=== PATIENT | female | born 1990 | race Caucasian/White ===

== ENCOUNTER 2017-04-22 17:29 | Emergency (ER) | payer BC ==
[~2017-04-22] VITALS: Wt 54.4 kg
[2017-04-22] MEDS ORDERED: ZYRTEC10 MG PO (21:16)
[2017-04-22] MEDS ORDERED: EPIPEN 2-P0.3 MG/0.3 IJ (21:16)
[2017-04-22] MEDS ORDERED: MEDROL DOSEPAK4 MG PO (21:16)
== END 2017-04-22 21:36 | disposition home or self-care (01) ==
LOC: ED 17:29
DX: T78.40XA Allergy, unspecified, initial encounter (principal); X58.XXXA Exposure to other specified factors, initial encounter

== ENCOUNTER → 2019-05-28 | Outpatient (CLI) | payer OTHER ==
[~2019-05-28] MED LIST: EPIPEN 2-P0.3 MG/0.3 IJ; MEDROL DOSEPAK4 MG PO; ZYRTEC10 MG PO
[2019-05-28 15:26] LABS: HEMATOCRIT 40.2 % (37.0-47.0); HEMOGLOBIN 13.4 g/dl (12.0-16.0); MEAN CELL VOLUME 95.9 fl (81.0-99.0); MEAN CORPUSCULAR HGB CONC 33.3 g/dl (33.0-37.0); MEAN PLATELET VOLUME 10.3 fl (9.6-12.3); RED BLOOD COUNT 4.19 10*6/uL (4.10-5.10); RED CELL DISTRI WIDTH 12.2 % (0-14.5); WHITE BLOOD COUNT 5.8 10*3/uL (4.8-10.8)
[2019-05-28 16:05] LABS: ALBUMIN 4.2 gm/dl (3.1-4.5); ALKALINE PHOSPHATASE 55 U/L (45-117); BUN 11 mg/dl (7-24); CHLORIDE 108 mmol/L (98-107); CHOLESTEROL 139 mg/dL (<200); HDL CHOLESTEROL 47 mg/dl (40-60); LDL CHOLESTEROL 77 mg/dL (9-159); POTASSIUM 3.8 mmol/L (3.5-5.1); SGOT/AST 15 IU/L (3-35); SGPT/ALT 19 U/L (12-78); SODIUM 142 mmol/L (136-145); TOTAL PROTEIN 7.8 gm/dL (6.4-8.2); TRIGLYCERIDES 76 mg/dl (<150); VLDL CHOLESTEROL 15 mg/dL (6-40)
[2019-05-30 03:08] LABS: PROTEIN S-FUNCTIONAL 164525 80 % (63-140)
== END | disposition home or self-care (01) ==
LOC: LAB 14:15
PROVIDERS: Family Medicine
DX: Z13.220 Encounter for screening for lipoid disorders (principal); E55.9 Vitamin D deficiency, unspecified; N93.9 Abnormal uterine and vaginal bleeding, unspecified

== ENCOUNTER → 2019-10-02 | Outpatient (CLI) | payer OTHER | END | disposition home or self-care (01) | LOC: US 11:24 | DX: Z34.01 Encounter for supervision of normal first pregnancy, first trimester (principal); Z3A.08 8 weeks gestation of pregnancy ==

== ENCOUNTER 2019-10-23 20:04 | Emergency (ER) | payer OTHER ==
[~2019-10-23] VITALS: Ht 170.1 cm; Wt 59.0 kg
[2019-10-23 21:35] LABS: BILIRUBIN NEGATIVE (NEGATIVE); CLARITY CLEAR (CLEAR); COLOR YELLOW (YELLOW); GLUCOSE NEGATIVE (NEGATIVE); KETONE NEGATIVE (NEGATIVE)
[2019-10-23 21:36] LABS: BLOOD 2+ (NEGATIVE); LEUKO ESTERASE NEGATIVE (NEGATIVE); NITRITE NEGATIVE (NEGATIVE); SPECIFIC GRAVITY 1.025 (1.005-1.030); UROBILINOGEN 0.2 E.U./dl (0.2-1.0)
[2019-10-23 21:42] LABS: BACTERIA 2+
[2019-10-23 22:08] LABS: BASO % 0.5 % (0.0-1.0); EOS # 0.1 10*3/uL (0.0-0.4); EOS % 0.8 % (1.0-4.0); HEMATOCRIT 33.8 % (37.0-47.0); LYMPH # 1.8 10*3/uL (1.3-4.4); LYMPH % 29.9 % (27.0-41.0); MEAN CELL VOLUME 93.1 fl (81.0-99.0); MEAN CORPUSCULAR HGB 32.2 pg (27.0-31.0); MEAN CORPUSCULAR HGB CONC 34.6 g/dl (33.0-37.0); MEAN PLATELET VOLUME 9.7 fl (9.6-12.3); MONO # 0.4 10*3/uL (0.1-1.0); MONO % 6.4 % (3.0-9.0); NEUT # 3.7 10*3/uL (2.3-7.9); NEUT % 62.1 % (47.0-73.0); PLATELET COUNT AUTOMATED 133 10*3/uL (130-400); RED BLOOD COUNT 3.63 10*6/uL (4.10-5.10); RED CELL DISTRI WIDTH 12.3 % (0-14.5); WHITE BLOOD COUNT 5.9 10*3/uL (4.8-10.8)
[2019-10-23 22:20] LABS: ALBUMIN 3.9 gm/dl (3.1-4.5); ALKALINE PHOSPHATASE 32 U/L (45-117); BUN 11 mg/dl (7-24); CHLORIDE 105 mmol/L (98-107); CREATININE 0.52 mg/dL (0.55-1.02); LIPASE 172 U/L (73-393); POTASSIUM 3.6 mmol/L (3.5-5.1); SGOT/AST 24 IU/L (3-35); SGPT/ALT 21 U/L (12-78); SODIUM 139 mmol/L (136-145)
[2019-10-24] MEDS ORDERED: Percocet 325 MG1 TAB PO (22:19)
[2019-10-24] MEDS ORDERED: ZOFRAN4 MG PO (22:19)
[2019-10-27] MEDS ORDERED: ASPIRIN CHEWABL81 MG PO (15:55)
[2019-10-28] MEDS ORDERED: Motrin,Rufen800 MG PO (10:43)
[2019-10-28] MEDS ORDERED: NORCO 5-325 TA1 EACH PO (10:43)
== END 2019-10-24 00:55 | disposition home or self-care (01) ==
LOC: ED 20:04
PROVIDERS: Physician Assistant
DX: O36.8310 Maternal care for abnormalities of the fetal heart rate or rhythm, first trimester, not applicable or unspecified (principal); Z3A.12 12 weeks gestation of pregnancy; Z79.899 Other long term (current) drug therapy

== ENCOUNTER 2019-10-24 19:27 | Emergency (ER) | payer OTHER ==
[2019-10-24 19:54] LABS: BASO % 0.4 % (0.0-1.0); EOS # 0.1 10*3/uL (0.0-0.4); EOS % 1.1 % (1.0-4.0); HEMATOCRIT 37.4 % (37.0-47.0); LYMPH # 2.1 10*3/uL (1.3-4.4); LYMPH % 24.5 % (27.0-41.0); MEAN CELL VOLUME 93.7 fl (81.0-99.0); MEAN CORPUSCULAR HGB 31.8 pg (27.0-31.0); MEAN PLATELET VOLUME 9.9 fl (9.6-12.3); MONO # 0.6 10*3/uL (0.1-1.0); NEUT # 5.6 10*3/uL (2.3-7.9); NEUT % 66.6 % (47.0-73.0); PLATELET COUNT AUTOMATED 149 10*3/uL (130-400); RED BLOOD COUNT 3.99 10*6/uL (4.10-5.10); RED CELL DISTRI WIDTH 12.3 % (0-14.5); WHITE BLOOD COUNT 8.4 10*3/uL (4.8-10.8)
[2019-10-24 20:08] LABS: ALBUMIN 4.2 gm/dl (3.1-4.5); ALKALINE PHOSPHATASE 36 U/L (45-117); BUN 12 mg/dl (7-24); CHLORIDE 107 mmol/L (98-107); CREATININE 0.79 mg/dL (0.55-1.02); POTASSIUM 3.6 mmol/L (3.5-5.1); SGOT/AST 16 IU/L (3-35); SGPT/ALT 24 U/L (12-78); SODIUM 141 mmol/L (136-145); TOTAL PROTEIN 7.5 gm/dL (6.4-8.2)
[2019-10-24] MEDS ORDERED: ZOFRAN4 MG PO (22:19)
[2019-10-24] MEDS ORDERED: Percocet 325 MG1 TAB PO (22:19)
[2019-10-27] MEDS ORDERED: ASPIRIN CHEWABL81 MG PO (15:55)
[2019-10-28] MEDS ORDERED: NORCO 5-325 TA1 EACH PO (10:43)
[2019-10-28] MEDS ORDERED: Motrin,Rufen800 MG PO (10:43)
== END 2019-10-24 22:22 | disposition home or self-care (01) ==
LOC: ED 19:27
PROVIDERS: Physician Assistant
DX: O03.9 Complete or unspecified spontaneous abortion without complication (principal)

== ENCOUNTER → 2019-10-25 | Outpatient (CLI) | payer OTHER ==
[~2019-10-25] MED LIST changes: +ASPIRIN CHEWABL81 MG PO; +Motrin,Rufen800 MG PO; +NORCO 5-325 TA1 EACH PO; +Percocet 325 MG1 TAB PO; +ZOFRAN4 MG PO
== END ==
LOC: US 09:41
DX: O03.9 Complete or unspecified spontaneous abortion without complication (principal)

== ENCOUNTER → 2019-10-28 | Day surgery (SDC) | payer OTHER ==
[~2019-10-28] VITALS: Ht 170.1 cm; Wt 59.0 kg
[2019-10-28 08:10] VITALS: BP 129/78
[2019-10-28 08:34] LABS: ACT PARTIAL THROMBO TIME 25.3 SECONDS (20.0-32.1)
[2019-10-28 10:23] VITALS: BP 140/90
[2019-10-28 10:40] VITALS: BP 108/75
[2019-10-28 10:55] VITALS: BP 106/71
[2019-10-28 11:17] VITALS: BP 110/77
== END | disposition home or self-care (01) ==
LOC: SDC 10-27 14:00
PROVIDERS: Obstetrics & Gynecology
DX: O02.1 Missed abortion (principal)

== ENCOUNTER → 2019-12-18 | Outpatient (CLI) | payer OTHER | END | disposition home or self-care (01) | LOC: LAB 09:57 | DX: N91.2 Amenorrhea, unspecified (principal) ==

== ENCOUNTER → 2020-04-01 | Outpatient (CLI) | payer OTHER ==
[2020-04-01 10:12] LABS: VITAMIN D, 25-HYDROXY 26.2 ng/mL (30-100)
[2020-04-01 10:23] LABS: RUBELLA IgG ANTIBODY 67.1 IU/mL (>10)
== END | disposition home or self-care (01) ==
LOC: LAB 08:55
PROVIDERS: ATTEND Obstetrics & Gynecology Reproductive Endocrinology
DX: Z11.59 Encounter for screening for other viral diseases (principal); E02 Subclinical iodine-deficiency hypothyroidism; E55.9 Vitamin D deficiency, unspecified; Z01.83 Encounter for blood typing

== ENCOUNTER 2021-04-24 12:22 | Emergency (ER) | payer OTHER | END 2021-04-24 12:51 | disposition home or self-care (01) | LOC: ED 12:22 | DX: O46.92 Antepartum hemorrhage, unspecified, second trimester (principal); Z3A.12 12 weeks gestation of pregnancy; Z79.82 Long term (current) use of aspirin ==

== ENCOUNTER 2021-06-07 17:27 | Emergency (ER) | payer OTHER ==
[~2021-06-07] VITALS: Ht 170.1 cm; Wt 61.2 kg
[2021-06-07 17:49] LABS: BASO % 0.3 % (0.0-1.0); HEMATOCRIT 33.7 % (37.0-47.0); LYMPH # 0.5 10*3/uL (1.3-4.4); LYMPH % 12.7 % (27.0-41.0); MEAN CELL VOLUME 93.9 fl (81.0-99.0); MEAN CORPUSCULAR HGB 32.6 pg (27.0-31.0); MEAN CORPUSCULAR HGB CONC 34.7 g/dl (33.0-37.0); MONO # 0.3 10*3/uL (0.1-1.0); MONO % 8.5 % (3.0-9.0); NEUT # 2.7 10*3/uL (2.3-7.9); NEUT % 77.1 % (47.0-73.0); PLATELET COUNT AUTOMATED 87 10*3/uL (130-400); RED BLOOD COUNT 3.59 10*6/uL (4.10-5.10); RED CELL DISTRI WIDTH 13.2 % (0-14.5); WHITE BLOOD COUNT 3.5 10*3/uL (4.8-10.8)
[2021-06-07 18:03] LABS: ALBUMIN 3.2 gm/dl (3.1-4.5); ALKALINE PHOSPHATASE 44 U/L (45-117); BUN 6 mg/dl (7-24); CHLORIDE 104 mmol/L (98-107); CREATININE 0.53 mg/dL (0.55-1.02); POTASSIUM 3.5 mmol/L (3.5-5.1); SGOT/AST 58 IU/L (3-35); SGPT/ALT 58 U/L (12-78); SODIUM 135 mmol/L (136-145); TOTAL PROTEIN 6.8 gm/dL (6.4-8.2)
[2021-06-07 19:18] LABS: BILIRUBIN Negative (Negative); BLOOD Negative (Negative); CLARITY Clear (Clear); COLOR Yellow (Yellow); GLUCOSE Negative (Negative); KETONE Negative (Negative); LEUKO ESTERASE Negative (Negative); NITRITE Negative (Negative); SPECIFIC GRAVITY 1.015 (1.001-1.030)
[2021-06-07 19:19] LABS: PH 8.5 (4.5-8.0)
[2021-06-07 19:24] LABS: BACTERIA 2+; EPITHELIAL CELLS 0-2; RBC 0-2 rbc/hpf (0-2); WBC 0-2 wbc/hpf (0-5)
== END 2021-06-07 23:04 | disposition home or self-care (01) ==
LOC: ED 17:27
PROVIDERS: Nurse Practitioner
DX: O99.352 Diseases of the nervous system complicating pregnancy, second trimester (principal); Z20.822 Contact with and (suspected) exposure to COVID-19; Z3A.20 20 weeks gestation of pregnancy

== ENCOUNTER → 2023-03-24 | Outpatient (CLI) | payer BC ==
[2023-03-26 16:07] LABS: DILUTE PROTHROMBIN TIME 40.7 sec (0.0-47.6); DPT CONFIRM RATIO 1.05 Ratio (0.00-1.34); LUPUS DRVVT 32.2 sec (0.0-47.0); LUPUS REFLEX INTERPRETATION Comment: (.); THROMBIN TIME 18.4 sec (0.0-23.0)
== END | disposition home or self-care (01) ==
LOC: LAB 07:09
PROVIDERS: ATTEND Obstetrics & Gynecology Reproductive Endocrinology
DX: Z31.430 Encounter of female for testing for genetic disease carrier status for procreative management (principal); R73.09 Other abnormal glucose

== ENCOUNTER → 2024-09-23 | Outpatient (CLI) | payer OTHER ==
[2024-09-23 09:18] LABS: HEMATOCRIT 39.6 % (37.0-47.0); MEAN CELL VOLUME 89.8 fl (81.0-99.0); MEAN CORPUSCULAR HGB 30.4 pg (27.0-31.0); MEAN CORPUSCULAR HGB CONC 33.8 g/dl (33.0-37.0); MEAN PLATELET VOLUME 10.2 fl (9.6-12.3); RED BLOOD COUNT 4.41 10*6/uL (4.10-5.10); RED CELL DISTRI WIDTH 12.7 % (0-14.5); WHITE BLOOD COUNT 4.8 10*3/uL (4.8-10.8)
[2024-09-23 09:48] LABS: ALKALINE PHOSPHATASE 75 U/L (46-116); BUN 13 mg/dl (9-23); CHLORIDE 103 mmol/L (98-107); CHOLESTEROL 197 mg/dL (<200); FREE T4 0.93 ng/dl (0.89-1.76); LDL CHOLESTEROL 116 mg/dL (9-159); POTASSIUM 3.8 mmol/L (3.4-5.1); SGPT/ALT 12 U/L (5-49); TOTAL PROTEIN 7.5 gm/dL (6.0-8.0); TRIGLYCERIDES 139 mg/dl (<150)
[2024-09-23 09:49] LABS: VITAMIN D, 25-HYDROXY 28.8 ng/mL (30-100)
== END | disposition home or self-care (01) ==
LOC: LAB 08:26
PROVIDERS: ATTEND Family Medicine
DX: T78.40XA Allergy, unspecified, initial encounter (principal); E55.9 Vitamin D deficiency, unspecified; R53.83 Other fatigue; X58.XXXA Exposure to other specified factors, initial encounter; Y93.89 Activity, other specified; Y92.89 Other specified places as the place of occurrence of the external cause; Y99.8 Other external cause status